=== PATIENT | male | born 1990 | race Caucasian/White ===

== ENCOUNTER 2019-10-19 14:21 | Outpatient (CLI) | payer OTHER, SELFPAY ==
--- NOTE | 2019-10-19 14:29 | XRR_ITS ---
PROCEDURE INFORMATION: Exam: XR Thoracic Spine, 3 Views Exam date and time: 10/19/2019 2:38 PM Age: 29 years old Clinical indication: Pain in thoracic spine; Additional info: Upper back pain x 2 years TECHNIQUE: Imaging protocol: XR of the thoracic spine, 3 views. COMPARISON: No relevant prior studies available. FINDINGS: Vertebrae: Normal. No acute fracture. Normal alignment. General osteopenia is seen. Soft tissues: Unremarkable. XR/XR thoracic spine 2V [id number] IMPRESSION: No acute findings.
== END 2019-10-19 14:22 | disposition home or self-care (01) ==
PROVIDERS: Visit Provider Nurse Practitioner Family
DX: M54.6 Pain in thoracic spine (principal)
CPT/HCPCS: 72070

== ENCOUNTER 2021-05-07 16:49 | Outpatient (CLI) | payer OTHER, SELFPAY ==
--- NOTE | 2021-05-07 16:56 | XR_ITS ---
WS: [email or web address] THORACIC SPINE TECHNIQUE: 3 views of the thoracic spine CLINICAL INFORMATION: UPPER BACK PAIN COMPARISON: October 19, 2019 FINDINGS: Mild thoracic curve convex left. Disc space heights vertebral body heights well-preserved. No acute a ppearing compression fractures. Visualized lungs are well aerated. XR/XR thoracic spine 2V [id number] IMPRESSION: 1. No acute thoracic spine findings. 2. Mild thoracic curve convex left.
--- NOTE | 2021-05-07 16:56 | XR_ITS ---
WS: [email or web address] LUMBAR SPINE TECHNIQUE: 7 views of the lumbar spine CLINICAL INFORMATION: LUMBAR BACK PAIN COMPARISON: None. FINDINGS: Five [id number] lumbar vertebral bodies. Minimal lumbar curve. Disc space heights are well prese rved. No compression fractures. No visualized pars defects. No spondylolisthesis. No instability on f lexion-extension. Visualized sacroiliac joints are normal. Normal visualized soft tissues. Partially visualized bowel gas pattern is normal. XR/XR lumbar spine 6V w f/e [id number] IMPRESSION: 1. No instability on flexion-extension. 2. No acute lumbar spine findings.
== END 2021-05-07 16:50 | disposition home or self-care (01) ==
LOC: RAD 16:52
PROVIDERS: Visit Provider Nurse Practitioner Family
DX: M54.50 Low back pain, unspecified (principal); M54.6 Pain in thoracic spine
CPT/HCPCS: 72070; 72114

== ENCOUNTER 2021-08-30 08:28 | Outpatient (CLI) | payer OTHER, SELFPAY ==
--- NOTE | 2021-08-30 08:00 | MR_ITS ---
WS: [email or web address] MRI LUMBAR SPINE NONCONTRAST HISTORY: M54.9 - Dorsalgia, unspecified COMPARISON: Lumbar spine radiograph 05/07/2021. TECHNIQUE: Sagittal and axial multisequence imaging is submitted. Normal lumbar alignment with no compression fractures or marrow edema. Disc spaces and vertebral body heights are well-preserved. Conus terminates normally at L1. L1-L2: Normal. L2-L3: Normal. L3-L4: Mild ligamentum flavum hypertrophy. No stenosis. L4-L5: Mild disc bulging with very mild ligamentum flavum hypertrophy and facet arthritis. Small amou nt of fluid in the facet joints. No disc protrusion or stenosis. L5-S1: Mild annular disc bulge with a very shallow central and proximal RIGHT foraminal disc protrusi on. The disc protrusion is abutting the undersurface of the RIGHT exiting L5 nerve root without signi ficant stenosis or displacement. Paravertebral soft tissues are normal. MR/MR lumbar spine wo con* [id number] IMPRESSION: 1. No significant stenosis or disc protrusions. 2. Very small proximal RIGHT foraminal disc protrusion at L5-S1 with minimal c ontact on the undersurface of the L5 nerve root. 3. Very mild ligamentum flavum and facet arthritis at L4-5.
--- NOTE | 2021-08-30 08:45 | MR_ITS ---
WS: [email or web address] MRI THORACIC SPINE noncontrast HISTORY: M54.9 - Dorsalgia, unspecified COMPARISON: Radiographs 05/07/2021. TECHNIQUE: Multiplanar sequences are performed in sagittal and axial planes. Very mild curvature mid thoracic spine to the LEFT. Otherwise the posterior alignment of the vertebra l bodies is normal. No marrow edema or fracture. There is abnormal T2 signal within the central thora cic cord beginning at the T6-7 disc level and extending to the mid T10 vertebral body. In the central cord there is increased T2 signal consistent with a syrinx measuring 2 mm in diameter. T1-2: Normal. T2-3: Normal. T3-4: Normal. T4-5: Normal. T5-6: Normal. T6-7: Central disc protrusion contacts the ventral thecal sac. This is at the level that the syrinx begins. T7-8: Larger disc protrusion extends slightly above and below the disc space over a length of 13 mm. Effacement of ventral CSF and contact on the cord. T8-9: Normal. T9-10: Mild facet and ligamentum flavum hypertrophy. T10-11: Mild facet and ligamentum flavum hypertrophy. T11-12: Very mild facet and ligamentum flavum hypertrophy. Paravertebral soft tissues are negative for acute process. MR/MR thoracic spin wo con* [id number] IMPRESSION: 1. 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 Recommend follow-up MRI with contrast to ex clude underlying mass. 2. Moderate size central disc protrusion at T7-8 contacts and deforms the thor acic cord. Results in mild central stenosis. 3. Smaller central disc protrusion at T6-7 also contacts the anterior thoracic cord.
== END 2021-08-30 08:29 | disposition home or self-care (01) ==
PROVIDERS: Visit Provider Orthopaedic Surgery
DX: M54.9 Dorsalgia, unspecified (principal)
CPT/HCPCS: 72146; 72148

== ENCOUNTER 2021-10-31 11:02 | Outpatient (CLI) | payer OTHER, SELFPAY ==
--- NOTE | 2021-10-31 11:00 | MR_ITS ---
WS: [email or web address] MRI THORACIC SPINE with and without contrast. HISTORY: Syrinx identified on a prior MRI. Evaluate with contrast. COMPARISON: 08/30/2021 TECHNIQUE: Multiplanar sequences are performed in sagittal and axial planes. Sagittal and axial T1 fa t sat sequences post-ProHance 17 cc IV. Mild curvature and straightening of the normal thoracic kyphosis. No acute fracture or edema. Thoraci c cord syrinx is identified beginning at the T6 level and extending to the mid T9 level. Syrinx exten ds laterally by 4 mm at the T6-7 level due to compression by disc. Otherwise diameter is approximatel y 3 mm. T1-2: Normal. T2-3: Normal. T3-4: Normal. T5-6: Bilateral facet joint arthritis. No stenosis. T6-7: Moderate-sized central disc protrusion contacts the ventral thecal sac and deforms the thecal sac. Disc contacts the central syrinx. No foraminal stenosis. T7-8: Moderate-sized central disc protrusion contacts the ventral thecal sac. Very slight deformity of the ventral thoracic cord. No high-grade stenosis. T8-9: Normal. T9-10: Facet joint arthritis. T10-11: Normal. T11-12: Normal. On the postcontrast images there is no enhancing mass identified with the syrinx. Conus tapers normal ly towards the L1 level. MR/MR thoracic spine wo/w [id number] IMPRESSION: 1. 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 No associ ated mass or abnormal enhancement. 2. Focal disc protrusions at T6-7 and T7-8 with contact upon the thoracic cord . 3. Most significant disc protrusion is at T6-7 which causes significant deform ity on the thoracic cord with mild cord compression and contacts the syrinx. 4. Minimal disc contact on the ventral thoracic cord at T7-8.
== END 2021-10-31 11:03 | disposition home or self-care (01) ==
PROVIDERS: Visit Provider Anesthesiology Pain Medicine
DX: Q06.9 Congenital malformation of spinal cord, unspecified (principal); M51.24 Other intervertebral disc displacement, thoracic region
CPT/HCPCS: 72157